=== PATIENT | male | born 1945 | race Caucasian/White ===

== ENCOUNTER → 2016-07-30 | Day surgery (SDC) | payer MEDICARE, OTHER ==
[~2016-07-30] VITALS: Ht 175.3 cm; Wt 156.9 kg
[~2016-07-30] MED LIST: ALEV220T26 PO; LIDOCAINE 2% INJ 100 MG/5 ML SDV (FOR ANES.) As Ordered ONE; LISI40TAB PO; LR 1,000 ML IV SCH; MIDAZOLAM INJ 2 MG/2 ML VIAL (J2250) As Ordered ONE; PROPOFOL 200 MG/20 ML VIAL As Ordered ONE
--- NOTE | 2016-07-30 08:05 | ROOR ---
Patient Name: Niels Calzada Procedure Date: 07/30/2016 7:16 AM Date of : 1945 Age: 70 Room: Main OR Gender: Male Note Status: Finalized Procedure: Colonoscopy to Cecum Indications: High risk colon cancer surveillance: Personal history of colonic polyps Providers: Miki Morales MD Referring MD: Corky Hopkins Requesting Provider: Medicines: Monitored Anesthesia Care Complications: No immediate complications. Procedure: Pre-Anesthesia Assessment: - The heart rate, respiratory rate, oxygen saturations, blood pressure, adequacy of pulmonary ventilation, and response to care were monitored throughout the procedure. The Colonoscope was introduced through the anus and advanced to the cecum, identified by appendiceal orifice and ileocecal valve. The colonoscopy was performed without difficulty. The patient tolerated the procedure well. The quality of the bowel preparation was excellent. Findings: The perianal and digital rectal examinations were normal. Non-bleeding internal hemorrhoids were found during retroflexion. The hemorrhoids were small and Grade I (internal hemorrhoids that do not prolapse). Multiple small and large-mouthed diverticula were found in the recto-sigmoid colon, sigmoid colon and descending colon. There is no endoscopic evidence of any other abnormality in the ascending colon. No ulcer at this procedure. Appears to be healed. The exam was otherwise without abnormality on direct and retroflexion views. Impression: - Non-bleeding internal hemorrhoids. - Diverticulosis in the recto-sigmoid colon, in the sigmoid colon and in the descending colon. - The examination was otherwise normal on direct and retroflexion views. - No specimens collected. - The exam was otherwise normal to the cecum. Recommendation: - Discharge patient to home. - Continue present medications. - High fiber diet. - Repeat colonoscopy in 5 years for surveillance. - Return to referring physician. - The findings and recommendations were discussed with the patient's family. Attending Participation: I personally performed the entire procedure. Miki Morales MD Miki Morales MD 07/30/2016 8:04:32 AM This report has been signed electronically. Number of Addenda: 0 Note Initiated On: 07/30/2016 7:16 AM Estimated Blood Loss: Estimated blood loss: none.
[2016-07-30 08:53] VITALS: BP 97/56
== END | disposition home or self-care (01) ==
LOC: M SDC 05:59 → EDSTATUS 07:30
PROVIDERS: ATTEND Internal Medicine Gastroenterology
DX: Z86.010 Personal history of colon polyps (principal); K64.8 Other hemorrhoids; I10 Essential (primary) hypertension; Z79.899 Other long term (current) drug therapy; Z87.891 Personal history of nicotine dependence
CPT/HCPCS: 45378; J2250

== ENCOUNTER 2020-04-29 12:45 | Inpatient (IN) | payer MEDICARE, OTHER ==
[2020-04-29] VITALS (31 sets, daily range): BP systolic 85–148; BP diastolic 37–94; O2SAT 98
[~2020-04-29] VITALS: Ht 175.3 cm; Wt 139.3 kg
[~2020-04-29 12:45] MED LIST changes: -LIDOCAINE 2% INJ 100 MG/5 ML SDV (FOR ANES.) As Ordered ONE; +LISI40TA PO; -LISI40TAB PO; -LR 1,000 ML IV SCH; -MIDAZOLAM INJ 2 MG/2 ML VIAL (J2250) As Ordered ONE; -PROPOFOL 200 MG/20 ML VIAL As Ordered ONE; +SUCCINYLCHOLINE 100 MG/5 ML SYRINGE (J0330) ONE; +ePHEDrine INJ 50 MG/ML VIAL ONE; +propofoL 200 MG/20 ML VIAL ONE
[2020-04-29] MEDS ORDERED: NS 500 ML IV ONE (13:00)
[2020-04-29] MEDS ORDERED: NOREPINEPHRINE 4 MG/4 ML AMP As Ordered ONE ×2 (13:03→13:09)
[2020-04-29] MEDS ORDERED: DEXTROSE 50% 50 ML SYRINGE As Ordered ONE (13:06)
[2020-04-29 13:26] LABS: HEMATOCRIT 52.8 % (42.0-52.0); HEMOGLOBIN 15.5 g/dl (13.5-17.5); MEAN CORPUSCULAR HEMOGLOBIN 30.6 pg (27.0-33.0); MEAN CORPUSCULAR HGB CONC 29.4 g/dl (32.0-36.5); MEAN CORPUSCULAR VOLUME 104.3 fl (80.0-96.0); PLATELET COUNT, AUTOMATED 523 10^3/uL (150-450); RED BLOOD COUNT 5.06 10^6/uL (4.30-6.10)
[2020-04-29] MEDS ORDERED: NOREPINEPHRINE BITARTRATE 8 MG in D5W 492 ML IV SCH ×2 (13:30→13:37)
[2020-04-29] MEDS ORDERED: LIDOCAINE 2% 5ML JELLY UROJET TOP ONE (13:30)
[2020-04-29] MEDS ORDERED: AMIO200T3 PO (13:36)
[2020-04-29] MEDS ORDERED: PANT40TA29 PO (13:36)
[2020-04-29] MEDS ORDERED: DILT180C70 PO (13:36)
[2020-04-29] MEDS ORDERED: ELIQ5TAB PO (13:36)
[2020-04-29] MEDS ORDERED: BACL10TA2 PO (13:36)
[2020-04-29] MEDS ORDERED: METO1TAB87 PO (13:36)
--- NOTE | 2020-04-29 13:43 | REP ---
INDICATION: CHEST PAIN. COMPARISON: Comparison chest x-ray April 04, 2020.. TECHNIQUE: Supine AP portable view. FINDINGS: Endotracheal tube has been passed in good position just below the level of proximal clavicles. There is gaseous distention of the stomach. Monitoring electrodes are seen. Heart is not felt to be enlarged. Pulmonary vasculature is not increased. There is no evidence of pneumothorax or obvious high but hydrothorax. No infiltrate. IMPRESSION: Endotracheal tube in good position. Gaseous distention of the stomach. Otherwise negative. <Electronically signed by Torey Kline > 04/29/20 [id number]
[2020-04-29] MEDS ORDERED: NS IV ONE (13:45)
[2020-04-29] MEDS ORDERED: EPINEPHrine 1MG/10ML SYRINGE 1.5IN As Ordered ONE (13:45)
[2020-04-29] MEDS ORDERED: PIPERACILLIN/TAZOBACTAM SOD 4.5 GM in D5W MINI-BAG PLUS 50 ML IV ONE (13:45)
--- NOTE | 2020-04-29 14:10 | REP ---
INDICATION: fall unresponsive. COMPARISON: None. TECHNIQUE: Helical scanning is acquired. 5 mm axial images were reformatted. Coronal MPR images were generated. FINDINGS: Bone window settings demonstrate an intact bony calvarium. There is no evidence of skull fracture or incidental bony calvarial lesion. No intraorbital abnormality is seen. On soft tissue window setting images; the lateral, third, and fourth ventricles are normal in size and position. Meraz-white differentiation pattern is normal above and below the tentorium. There are is no evidence of intracranial hemorrhage. No mass, edema, infarction, or midline shift is seen. No extra-axial fluid collection is appreciated. There is minimal mucosal thickening in the maxillary sinuses bilaterally. Mild vascular calcification is noted. IMPRESSION: Negative noncontrast head CT. <Electronically signed by Torey Kline > 04/29/20 2101
--- NOTE | 2020-04-29 14:13 | REP ---
INDICATION: fall unresponsive. COMPARISON: None. TECHNIQUE: Helical scanning is acquired and overlapping 2 mm high resolution axial images were generated and reviewed at bone and soft tissue window settings. Coronal and sagittal multiplanar re-formations images are generated. FINDINGS: There is no evidence of cervical spine element fracture. No skull base fracture is seen. Cervical vertebral body heights are preserved. Alignment is normal. Facet joints are normally aligned bilaterally at each cervical level on multiplanar re-formations images. There is no evidence of intraspinal or paraspinal hematoma. No extra vertebral abnormality is seen. There is degenerative spondylosis is most pronounced at C5-6 and C6-7. At C6-7 there is central canal stenosis due to disc bulging and posterior osteophytic ridging. There is uncovertebral spurring most pronounced on the left with neural foraminal narrowing. At C5-6 there is moderate bilateral neural foraminal narrowing and there is diffuse disc bulging and osteophytic ridging producing moderate central canal stenosis. Osteoarthritic facet disease is noted in the mid cervical spine bilaterally. IMPRESSION: Degenerative spondylosis with spinal stenosis and neural foraminal narrowing at C5-6 and C6-7 moderate in degree. Otherwise negative. No traumatic abnormality noted.. <Electronically signed by Torey Kline > 04/29/20 [id number]
[2020-04-29] MEDS ORDERED: PANTOPRAZOLE 40MG VIAL (C9113 PER 1) IV ONE (14:15)
--- NOTE | 2020-04-29 14:18 | REP ---
INDICATION: fall unresponsive. COMPARISON: None. TECHNIQUE: Helical scanning is acquired and 3 mm axial images are generated. Coronal and sagittal MPR images are generated. FINDINGS: An endotracheal and nasogastric tube are seen in place. Endotracheal tube terminates just above the level of the transverse aorta. The NG tube is seen terminating in the body of the stomach. Some vascular calcification is noted. There is no evidence of mediastinal hematoma or mass. There is consolidation and some volume loss in the right lower lobe of the lung. Mild discoid atelectasis is seen in the left lower lobe posteriorly and in the right middle lobe. No other infiltrate is seen. There is minimal linear fibrosis in the right upper lobe anteromedially. There are numerous bilateral anterior rib fractures. There are few bubbles of subcutaneous air in the right anterior chest wall between the costal cartilages. No mediastinal hematoma is seen. No other fracture is observed. Thoracic vertebral body heights are preserved. Psoas there are numb appears intact. IMPRESSION: There are numerous bilateral anterior rib fractures and costal cartilage fractures. No evidence of pneumothorax or hemothorax. There is consolidation and atelectasis in the right and to a lesser extent left lower lobe. No mediastinal hematoma is seen. Endotracheal and NG tubes in good position. <Electronically signed by Torey Kline > 04/29/20 [id number]
[2020-04-29] MEDS ORDERED: MIDAZOLAM INJ 2MG/2ML VIAL (J2250 PER 1MG) As Ordered ONE (14:21)
[2020-04-29 14:26] LABS: EOSINOPHILS 1 % (0-3); LYMPHOCYTES 33 % (16-44); METAMYELOCYTES 4 % (0-0); MONOCYTES 8 % (0-5); MYELOCYTES 2 % (0-0); NEUTROPHILS 40 % (28-66); PROMYELOCYTES 1 % (0-0)
[2020-04-29 14:27] LABS: HYPOCHROMASIA 1+
[2020-04-29 14:28] LABS: PLATELET ESTIMATE INCREASED (NORMAL)
[2020-04-29 14:30] LABS: ABG BASE EXCESS -20.6 (-2.0-2.0); ABG HCO3 10.4 MEQ/L (22.0-26.0); ABG O2 SATURATION 95.3 % (95.0-99.0); ABG PARTIAL PRESSURE CO2 43.1 mmHg (35.0-45.0); ABG PARTIAL PRESSURE O2 108.2 mmHg (75.0-100.0); ABG STANDARD HCO3 9.8 MEQ/L (22.0-26.0); ABG TOTAL CO2 11.7 MEQ/L (23.0-31.0)
[2020-04-29] MEDS: EPINEPHrine HCL INJ 1 MG in D5W 240 ML IV SCH ×5 (14:30→23:34)
[2020-04-29] MEDS ORDERED: MIDAZOLAM HCL 50 MG in D5W 40 ML IV SCH (14:30)
[2020-04-29 14:32] LABS: ABG pH (ARTERIAL) 6.999 UNITS (7.350-7.450)
[2020-04-29 14:36] LABS: INR 2.78
[2020-04-29 14:37] LABS: PARTIAL THROMBOPLASTIN TIME 37.8 SECONDS (24.2-38.5)
[2020-04-29] MEDS ORDERED: SODIUM BICARBONATE 150 MEQ in STERILE WATER LITER BAG 1,000 ML IV SCH (14:45)
[2020-04-29 15:01] LABS: D-DIMER QUANT > 4000 ng/ml (<500)
[2020-04-29 15:02] LABS: MAGNESIUM LEVEL 3.5 MG/DL (1.8-2.4); PHOSPHORUS LEVEL 9.1 MG/DL (2.5-4.9)
[2020-04-29] MEDS ORDERED: EPINEPHrine INJ 1 MG/ML 1ML AMP IV STA (15:10)
[2020-04-29] MEDS ORDERED: propofoL 1,000 MG in IV 1 EA IV SCH (15:10)
[2020-04-29] MEDS ORDERED: propofoL 200 MG/20 ML VIAL IV ONE (15:15)
[2020-04-29] MEDS ORDERED: SUCCINYLCHOLINE INJ 200 MG/10 ML VIAL (J0330) IV ONE (15:15)
--- NOTE | 2020-04-29 15:19 | REP ---
INDICATION: fall unresponsive COMPARISON: None. TECHNIQUE: Helical scanning is acquired in 4 mm axial images were reformatted. Coronal and sagittal MPR images were generated and reviewed. FINDINGS: There is a low-density lesion in the dome of the liver 3.4 cm in diameter consistent with a cyst. Liver parenchyma is otherwise normal in appearance. The spleen is normal in size homogeneous in texture. No abnormality is noted in the gallbladder or pancreas. The kidneys are morphologically intact. No retroperitoneal mass hematoma or abnormal fluid collection is seen. There is a tiny amount of ascitic fluid in the pelvis. Normal appendix is seen. There is gaseous and some fluid distention throughout the colon predominantly transverse and cecal segment. There is diverticulosis of the left colon without CT evidence of diverticulitis. There are scattered retroperitoneal and iliac lymph nodes no definite adenopathy. Bone window settings demonstrate fairly advanced degenerative spondylosis changes in the lumbar spine. No fracture or collapse is seen. Multiple an anterior rib fractures are noted bilaterally as described on the chest CT report. There is no evidence of free intraperitoneal air. IMPRESSION: Gaseous distention of the stomach, despite NG tube placement, and right and transverse segments of the colon. No obstructive lesion is seen. No intra-abdominal mass lesion. 3.4 cm hepatic cyst. Multiple anterior rib fractures bilaterally. Left colonic diverticulosis. Minimal fluid in the pelvis reflections. <Electronically signed by Torey Kline > 04/29/20 [id number]
[2020-04-29] MEDS ORDERED: DEXTROSE 50% 50 ML SYRINGE IV STA (15:26)
[2020-04-29] MEDS ORDERED: levETIRAcetam INJection 1,000 MG in D5W 100 ML IV ONE (15:30)
[2020-04-29] MEDS ORDERED: BUTA1CAP PO (15:34)
[2020-04-29 15:37] LABS: ALBUMIN 2.2 GM/DL (3.2-5.2); ALT/SGPT 775 U/L (12-78); AMYLASE 87 U/L (25-115); BILIRUBIN,DIRECT 0.7 MG/DL (0.0-0.2); BILIRUBIN,TOTAL 1.4 MG/DL (0.2-1.0); CK-MB VALUE MASS 3.9 NG/ML (<3.6); CPK CREATINE PHOSPHOKINASE 394 U/L (39-308); LIPASE 121 U/L (73-393); MB/CK RELATIVE INDEX 0.99 (< OR =4); NT-PRO BNP 799 PG/ML (<125); TOTAL PROTEIN 6.5 GM/DL (6.4-8.2); TROPONIN I < 0.02 NG/ML (< 0.10)
[2020-04-29] MEDS ORDERED: NS 1,000 ML IV SCH (16:00)
[2020-04-29] MEDS ORDERED: REFRIGERATOR IV KEYS XX PRN (16:00)
[2020-04-29] MEDS ORDERED: EPINEPHrine HCL INJ 1 MG in D5W 240 ML IV SCH (16:00)
[2020-04-29] MEDS ORDERED: ACETAMINOPHEN 650 MG SUPP PR ONE (16:00)
[2020-04-29] MEDS ORDERED: ACETAMINOPHEN 650 MG SUPP PR PRN (16:00)
[2020-04-29] MEDS: IPRATROPIUM 0.5MG/ALBUTEROL 2.5MG INH SOL UD 3ML (DUONEB) NEB SCH ×2 (16:00→19:56)
[2020-04-29 16:20] LABS: HEPATITIS B SURFACE ANTIGEN NEGATIVE (NEGATIVE); HEPATITIS C VIRUS ABY INDEX 0.2 INDEX (<0.8); HIV SCREEN CENTAUR SOURCE NEGATIVE (NEGATIVE)
[2020-04-29] MEDS ORDERED: XALA0.007 OU (16:40)
[2020-04-29 17:03] LABS: INR 4.19; PARTIAL THROMBOPLASTIN TIME 50.5 SECONDS (24.2-38.5); PROTHROMBIN TIME 41.4 SECONDS (12.5-14.3)
[2020-04-29] MEDS: VASOPRESSIN INJ 20 UNITS in NS 500 ML IV SCH (17:12)
[2020-04-29 17:17] LABS: ABG BASE EXCESS -20.5 (-2.0-2.0); ABG HCO3 8.5 MEQ/L (22.0-26.0); ABG O2 SATURATION 97.9 % (95.0-99.0); ABG PARTIAL PRESSURE CO2 30.5 mmHg (35.0-45.0); ABG PARTIAL PRESSURE O2 134.5 mmHg (75.0-100.0); ABG STANDARD HCO3 9.5 MEQ/L (22.0-26.0); ABG TOTAL CO2 9.4 MEQ/L (23.0-31.0); HEMATOCRIT 36.3 % (42.0-52.0); MEAN CORPUSCULAR HEMOGLOBIN 31.5 pg (27.0-33.0); MEAN CORPUSCULAR HGB CONC 30.9 g/dl (32.0-36.5); MEAN CORPUSCULAR VOLUME 102.3 fl (80.0-96.0); RED BLOOD COUNT 3.55 10^6/uL (4.30-6.10)
[2020-04-29 17:21] LABS: ABG pH (ARTERIAL) 7.063 UNITS (7.350-7.450)
[2020-04-29] MEDS: HEPARIN SOD (PORCINE) 5000UNITS/ML 1ML VIAL/SYRINGE SC SCH ×2 (17:28→23:51)
[2020-04-29 17:29] LABS: HEMOGLOBIN 11.2 g/dl (13.5-17.5); PLATELET COUNT, AUTOMATED 389 10^3/uL (150-450)
[2020-04-29 17:31] LABS: PROTHROMBIN TIME 51.2 SECONDS (12.5-14.3); WHITE BLOOD COUNT 40.6 10^3/uL (4.0-10.0)
[2020-04-29 17:32] LABS: PARTIAL THROMBOPLASTIN TIME 54.7 SECONDS (24.2-38.5)
[2020-04-29 17:33] LABS: INR 5.49
[2020-04-29 17:36] LABS: D-DIMER QUANT > 4000 ng/ml (<500)
[2020-04-29] MEDS ORDERED: LACRILUBE (AKWA TEARS) OPHTH OINT 3.5 GM OU PRN (18:00)
[2020-04-29] MEDS: HumaLOG INSULIN (NovoLOG) PER UNIT SC SCH ×3 (18:00→23:56)
[2020-04-29] MEDS: cefTRIAXone SOD 1 GM in D5W MINI-BAG PLUS 50 ML IV SCH (18:22)
[2020-04-29 18:30] LABS: ALBUMIN 1.8 GM/DL (3.2-5.2); BILIRUBIN,TOTAL 1.6 MG/DL (0.2-1.0); CALCIUM LEVEL 8.6 MG/DL (8.8-10.2); CREATININE FOR GFR 2.53 MG/DL (0.70-1.30); GLOMERULAR FILTRATION RATE 26.8 (>42); MAGNESIUM LEVEL 2.6 MG/DL (1.8-2.4); MB/CK RELATIVE INDEX 1.83 (< OR =4); PHOSPHORUS LEVEL 8.7 MG/DL (2.5-4.9); POTASSIUM SERUM 4.4 MEQ/L (3.5-5.1); TOTAL PROTEIN 4.8 GM/DL (6.4-8.2); TROPONIN I 0.14 NG/ML (< 0.10)
[2020-04-29] MEDS ORDERED: SODIUM BICARBONATE 8.4% INJ 50 ML SYRINGE IV STA ×2 (18:38→22:01)
[2020-04-29] MEDS ORDERED: SODIUM BICARBONATE 8.4% INJ 50 ML SYRINGE As Ordered ONE (18:42)
[2020-04-29] MEDS ORDERED: GLUCAGON INJ 1MG VIAL SC PRN (19:15)
[2020-04-29] MEDS ORDERED: DEXTROSE 50% 50 ML SYRINGE IV PRN (19:15)
[2020-04-29] MEDS ORDERED: GLUCOSE 4GM CHEW TABLET PO PRN (19:15)
[2020-04-29] MEDS: MIDAZOLAM INJ 2MG/2ML VIAL (J2250 PER 1MG) IV PRN (20:33)
[2020-04-29 21:13] LABS: ABG BASE EXCESS -18.1 (-2.0-2.0); ABG O2 SATURATION 99.1 % (95.0-99.0); ABG PARTIAL PRESSURE CO2 31.4 mmHg (35.0-45.0); ABG PARTIAL PRESSURE O2 204.8 mmHg (75.0-100.0); ABG STANDARD HCO3 11.1 MEQ/L (22.0-26.0)
[2020-04-29 21:14] LABS: ABG pH (ARTERIAL) 7.121 UNITS (7.350-7.450)
[2020-04-29 21:23] LABS: HEMATOCRIT 37.3 % (42.0-52.0); HEMOGLOBIN 11.3 g/dl (13.5-17.5); MEAN CORPUSCULAR HEMOGLOBIN 30.7 pg (27.0-33.0); MEAN CORPUSCULAR HGB CONC 30.3 g/dl (32.0-36.5); MEAN CORPUSCULAR VOLUME 101.4 fl (80.0-96.0); PLATELET COUNT, AUTOMATED 398 10^3/uL (150-450); RED BLOOD COUNT 3.68 10^6/uL (4.30-6.10)
[2020-04-29 21:25] LABS: WHITE BLOOD COUNT 40.8 10^3/uL (4.0-10.0)
[2020-04-29 21:33] LABS: PROTHROMBIN TIME 58.4 SECONDS (12.5-14.3)
[2020-04-29 21:34] LABS: PARTIAL THROMBOPLASTIN TIME 56.1 SECONDS (24.2-38.5)
[2020-04-29] MEDS: CHLORHEXIDINE GLUCONATE 0.12 % 15ML UDC (PERIDEX ORAL RINSE) MT SCH (21:36)
[2020-04-29 21:59] LABS: INR 6.49
[2020-04-29 22:00] LABS: ALBUMIN 1.7 GM/DL (3.2-5.2); BILIRUBIN,TOTAL 1.7 MG/DL (0.2-1.0); CALCIUM LEVEL 8.5 MG/DL (8.8-10.2); CREATININE FOR GFR 2.92 MG/DL (0.70-1.30); GLOMERULAR FILTRATION RATE 22.7 (>42); MAGNESIUM LEVEL 2.5 MG/DL (1.8-2.4); PHOSPHORUS LEVEL 8.5 MG/DL (2.5-4.9); POTASSIUM SERUM 4.1 MEQ/L (3.5-5.1); TOTAL PROTEIN 5.3 GM/DL (6.4-8.2)
--- NOTE | 2020-04-29 22:06 | ECGEPIP ---
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
[2020-04-29] MEDS: NOREPINEPHRINE BITARTRATE 8 MG in D5W 492 ML IV SCH ×2 (22:42→23:45)
[2020-04-29] MEDS ORDERED: VANCOMYCIN HCL 1,000 MG, VIAL MATE ADAPTER 1 EACH in D5W 250 ML IV ONE (23:00)
[2020-04-30] VITALS (55 sets, daily range): BP systolic 52–162; BP diastolic 26–68; O2SAT 91–93
[2020-04-30] MEDS ORDERED: VANCOMYCIN HCL 1,000 MG, VIAL MATE ADAPTER 1 EACH in D5W 250 ML IV ONE ×3
[2020-04-30] MEDS: HumaLOG INSULIN (NovoLOG) PER UNIT SC SCH ×4 (00:05→17:26)
[2020-04-30] MEDS: IPRATROPIUM 0.5MG/ALBUTEROL 2.5MG INH SOL UD 3ML (DUONEB) NEB SCH ×6 (00:28→19:45)
[2020-04-30] MEDS: MIDAZOLAM INJ 2MG/2ML VIAL (J2250 PER 1MG) IV PRN ×2 (00:50→01:14)
[2020-04-30 01:00] LABS: ALBUMIN 1.7 GM/DL (3.2-5.2); BILIRUBIN,TOTAL 1.8 MG/DL (0.2-1.0); CALCIUM LEVEL 8.5 MG/DL (8.8-10.2); CREATININE FOR GFR 3.16 MG/DL (0.70-1.30); GLOMERULAR FILTRATION RATE 20.7 (>42); MAGNESIUM LEVEL 2.3 MG/DL (1.8-2.4); PHOSPHORUS LEVEL 8.3 MG/DL (2.5-4.9); POTASSIUM SERUM 3.9 MEQ/L (3.5-5.1); TOTAL PROTEIN 5.1 GM/DL (6.4-8.2)
[2020-04-30] MEDS: SODIUM BICARBONATE 150 MEQ in STERILE WATER LITER BAG 1,000 ML IV SCH ×3 (01:14→12:28)
[2020-04-30 01:31] LABS: ABG BASE EXCESS -16.6 (-2.0-2.0); ABG HCO3 10.4 MEQ/L (22.0-26.0); ABG PARTIAL PRESSURE CO2 28.7 mmHg (35.0-45.0); ABG PARTIAL PRESSURE O2 66.7 mmHg (75.0-100.0); ABG STANDARD HCO3 12.1 MEQ/L (22.0-26.0); ABG TOTAL CO2 11.2 MEQ/L (23.0-31.0); ABG pH (ARTERIAL) 7.175 UNITS (7.350-7.450)
[2020-04-30 01:31] LABS: HEMATOCRIT 32.9 % (42.0-52.0); HEMOGLOBIN 10.1 g/dl (13.5-17.5); MEAN CORPUSCULAR HGB CONC 30.7 g/dl (32.0-36.5); MEAN CORPUSCULAR VOLUME 100.9 fl (80.0-96.0); PLATELET COUNT, AUTOMATED 335 10^3/uL (150-450); RED BLOOD COUNT 3.26 10^6/uL (4.30-6.10)
[2020-04-30 01:33] LABS: WHITE BLOOD COUNT 32.2 10^3/uL (4.0-10.0)
[2020-04-30 01:34] LABS: PROTHROMBIN TIME 66.8 SECONDS (12.5-14.3)
[2020-04-30 01:35] LABS: ABG O2 SATURATION 92.5 % (95.0-99.0)
[2020-04-30 01:35] LABS: PARTIAL THROMBOPLASTIN TIME 53.1 SECONDS (24.2-38.5)
[2020-04-30 01:38] LABS: INR 7.69
[2020-04-30] MEDS: EPINEPHrine HCL INJ 1 MG in D5W 240 ML IV SCH ×8 (01:51→17:50)
[2020-04-30] MEDS: VASOPRESSIN INJ 20 UNITS in NS 500 ML IV SCH ×3 (01:59→18:04)
[2020-04-30] MEDS: levETIRAcetam INJection 500 MG in D5W MINI-BAG PLUS 100 ML IV SCH ×2 (02:09→15:12)
[2020-04-30] MEDS: NOREPINEPHRINE BITARTRATE 8 MG in D5W 492 ML IV SCH ×4 (02:30→16:52)
[2020-04-30 05:15] LABS: HEMATOCRIT 34.6 % (42.0-52.0); HEMOGLOBIN 10.4 g/dl (13.5-17.5); MEAN CORPUSCULAR HEMOGLOBIN 30.1 pg (27.0-33.0); MEAN CORPUSCULAR HGB CONC 30.1 g/dl (32.0-36.5); MEAN CORPUSCULAR VOLUME 100.3 fl (80.0-96.0); PLATELET COUNT, AUTOMATED 339 10^3/uL (150-450); RED BLOOD COUNT 3.45 10^6/uL (4.30-6.10); WHITE BLOOD COUNT 29.2 10^3/uL (4.0-10.0)
[2020-04-30 05:19] LABS: ABG BASE EXCESS -16.7 (-2.0-2.0); ABG HCO3 10.4 MEQ/L (22.0-26.0); ABG O2 SATURATION 88.5 % (95.0-99.0); ABG PARTIAL PRESSURE CO2 29.3 mmHg (35.0-45.0); ABG PARTIAL PRESSURE O2 59.8 mmHg (75.0-100.0); ABG STANDARD HCO3 11.7 MEQ/L (22.0-26.0); ABG TOTAL CO2 11.3 MEQ/L (23.0-31.0)
[2020-04-30 05:25] LABS: PROTHROMBIN TIME 80.4 SECONDS (12.5-14.3)
[2020-04-30 05:35] LABS: ATYPICAL LYMPH 4 % (0-5); LYMPHOCYTES 7 % (16-44); METAMYELOCYTES 2 % (0-0); MONOCYTES 4 % (0-5); NEUTROPHILS 77 % (28-66)
[2020-04-30 05:36] LABS: PLATELET CLUMPS SMALL AMT; PLATELET ESTIMATE NORMAL (NORMAL)
[2020-04-30 05:37] LABS: TOXIC VACUOLATION 1+
[2020-04-30 06:33] LABS: INR 9.73
[2020-04-30 06:41] LABS: ALBUMIN 1.9 GM/DL (3.2-5.2); CREATININE FOR GFR 3.24 MG/DL (0.70-1.30); GLOMERULAR FILTRATION RATE 20.1 (>42); MAGNESIUM LEVEL 2.3 MG/DL (1.8-2.4); POTASSIUM SERUM 4.3 MEQ/L (3.5-5.1); TOTAL PROTEIN 5.2 GM/DL (6.4-8.2)
[2020-04-30] MEDS ORDERED: MIDAZOLAM HCL 100 MG in D5W 80 ML IV SCH (06:45)
[2020-04-30] MEDS ORDERED: METAL LOCK LOOP XX ONE (07:51)
--- NOTE | 2020-04-30 08:27 | REP ---
INDICATION: resp failure. COMPARISON: Comparison study April 29, 2020.. TECHNIQUE: Single semi-erect AP view. FINDINGS: Endotracheal tube remains in good position at the level of the proximal clavicles. NG tube enters the left upper quadrant. There is hazy opacity in the right base and blunting of the right lateral pleural angle indicating a small right pleural effusion. There is discoid atelectasis in the left base. No new infiltrate. IMPRESSION: Suspect developing pleural effusion on the right. Discoid atelectasis left base. <Electronically signed by Torey Kline > 04/30/20 0817
[2020-04-30] MEDS ORDERED: PANTOPRAZOLE 40MG VIAL (C9113 PER 1) IV SCH (09:00)
[2020-04-30 09:02] LABS: ABG BASE EXCESS -21.2 (-2.0-2.0); ABG HCO3 7.4 MEQ/L (22.0-26.0); ABG O2 SATURATION 93.5 % (95.0-99.0); ABG PARTIAL PRESSURE CO2 23.9 mmHg (35.0-45.0); ABG PARTIAL PRESSURE O2 72.5 mmHg (75.0-100.0); ABG STANDARD HCO3 8.8 MEQ/L (22.0-26.0); ABG TOTAL CO2 8.2 MEQ/L (23.0-31.0); ABG pH (ARTERIAL) 7.097 UNITS (7.350-7.450)
[2020-04-30 09:07] LABS: HEMATOCRIT 33.9 % (42.0-52.0); HEMOGLOBIN 10.5 g/dl (13.5-17.5); MEAN CORPUSCULAR HEMOGLOBIN 31.5 pg (27.0-33.0); MEAN CORPUSCULAR VOLUME 101.8 fl (80.0-96.0); PLATELET COUNT, AUTOMATED 307 10^3/uL (150-450); RED BLOOD COUNT 3.33 10^6/uL (4.30-6.10); WHITE BLOOD COUNT 29.6 10^3/uL (4.0-10.0)
[2020-04-30] MEDS ORDERED: D5W/0.9% SODIUM CHLORIDE 1,000 ML IV SCH (09:15)
[2020-04-30] MEDS: CHLORHEXIDINE GLUCONATE 0.12 % 15ML UDC (PERIDEX ORAL RINSE) MT SCH (09:19)
[2020-04-30 09:23] LABS: PARTIAL THROMBOPLASTIN TIME 49.8 SECONDS (24.2-38.5)
[2020-04-30 09:24] LABS: PROTHROMBIN TIME 93.9 SECONDS (12.5-14.3)
--- NOTE | 2020-04-30 09:34 | ECGEPIP ---
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 Low voltages; body habitus versus pulmonary disease Right axis deviation and right bundle branch block resolved from 04/29/20 Electronically Signed on 04-30-2020 9:34:01 EST by Cricket Akhtar
[2020-04-30 09:48] LABS: INR 11.85
[2020-04-30] MEDS ORDERED: PHYTONADIONE 10MG/ML INJECTION (J3430) SC ONE (10:15)
[2020-04-30 10:17] LABS: ALBUMIN 1.8 GM/DL (3.2-5.2); BILIRUBIN,TOTAL 2.1 MG/DL (0.2-1.0); CALCIUM LEVEL 7.8 MG/DL (8.8-10.2); CREATININE FOR GFR 3.48 MG/DL (0.70-1.30); GLOMERULAR FILTRATION RATE 18.5 (>42); MAGNESIUM LEVEL 2.4 MG/DL (1.8-2.4); PHOSPHORUS LEVEL 9.9 MG/DL (2.5-4.9); POTASSIUM SERUM 4.7 MEQ/L (3.5-5.1); TOTAL PROTEIN 4.9 GM/DL (6.4-8.2)
[2020-04-30] MEDS ORDERED: SODIUM CHLORIDE 0.9% INJ 10 ML SYR IV PRN (11:30)
[2020-04-30 13:02] LABS: HEMATOCRIT 28.9 % (42.0-52.0); HEMOGLOBIN 8.6 g/dl (13.5-17.5); MEAN CORPUSCULAR HEMOGLOBIN 31.2 pg (27.0-33.0); MEAN CORPUSCULAR HGB CONC 29.8 g/dl (32.0-36.5); MEAN CORPUSCULAR VOLUME 104.7 fl (80.0-96.0); PLATELET COUNT, AUTOMATED 264 10^3/uL (150-450); RED BLOOD COUNT 2.76 10^6/uL (4.30-6.10); WHITE BLOOD COUNT 24.7 10^3/uL (4.0-10.0)
[2020-04-30 13:09] LABS: ABG BASE EXCESS -22.6 (-2.0-2.0); ABG HCO3 6.9 MEQ/L (22.0-26.0); ABG O2 SATURATION 94.5 % (95.0-99.0); ABG PARTIAL PRESSURE CO2 25.6 mmHg (35.0-45.0); ABG PARTIAL PRESSURE O2 76.7 mmHg (75.0-100.0); ABG STANDARD HCO3 7.6 MEQ/L (22.0-26.0); ABG TOTAL CO2 7.8 MEQ/L (23.0-31.0)
[2020-04-30 13:10] LABS: ABG pH (ARTERIAL) 7.036 UNITS (7.350-7.450)
[2020-04-30 13:14] LABS: PARTIAL THROMBOPLASTIN TIME 57.2 SECONDS (24.2-38.5)
[2020-04-30 13:22] LABS: INR 8.31
[2020-04-30 13:44] LABS: MAGNESIUM LEVEL 2.4 MG/DL (1.8-2.4); PHOSPHORUS LEVEL 9.7 MG/DL (2.5-4.9)
[2020-04-30 14:47] LABS: ALBUMIN 1.9 GM/DL (3.2-5.2); CALCIUM LEVEL 7.3 MG/DL (8.8-10.2); CREATININE FOR GFR 3.25 MG/DL (0.70-1.30); GLOMERULAR FILTRATION RATE 20.1 (>42); POTASSIUM SERUM 5.1 MEQ/L (3.5-5.1); TOTAL PROTEIN 4.7 GM/DL (6.4-8.2)
[2020-04-30 17:07] LABS: IONIZED CALCIUM 3.6 MG/DL (4.5-5.3)
[2020-04-30 17:21] LABS: HEMATOCRIT 28.1 % (42.0-52.0); HEMOGLOBIN 8.2 g/dl (13.5-17.5); MEAN CORPUSCULAR HEMOGLOBIN 31.1 pg (27.0-33.0); MEAN CORPUSCULAR HGB CONC 29.2 g/dl (32.0-36.5); MEAN CORPUSCULAR VOLUME 106.4 fl (80.0-96.0); PLATELET COUNT, AUTOMATED 249 10^3/uL (150-450); RED BLOOD COUNT 2.64 10^6/uL (4.30-6.10); WHITE BLOOD COUNT 20.8 10^3/uL (4.0-10.0)
[2020-04-30] MEDS: cefTRIAXone SOD 1 GM in D5W MINI-BAG PLUS 50 ML IV SCH (17:29)
[2020-04-30 17:41] LABS: PARTIAL THROMBOPLASTIN TIME 40.8 SECONDS (24.2-38.5)
[2020-04-30 17:43] LABS: INR 6.01
[2020-04-30] MEDS ORDERED: NS 500 ML IV ONE (17:45)
[2020-04-30 18:07] LABS: ALBUMIN 2.1 GM/DL (3.2-5.2); BILIRUBIN,TOTAL 2.1 MG/DL (0.2-1.0); CALCIUM LEVEL 7.1 MG/DL (8.8-10.2); CREATININE FOR GFR 2.59 MG/DL (0.70-1.30); GLOMERULAR FILTRATION RATE 26.1 (>42); MAGNESIUM LEVEL 2.3 MG/DL (1.8-2.4); PHOSPHORUS LEVEL 8.7 MG/DL (2.5-4.9); POTASSIUM SERUM 5.2 MEQ/L (3.5-5.1); TOTAL PROTEIN 5.1 GM/DL (6.4-8.2)
[2020-04-30] MEDS ORDERED: CALCIUM GLUCONATE 1,000 MG in NS 100 ML IV SCH ×8 (18:45→20:00)
[2020-04-30 18:53] LABS: ABG BASE EXCESS -24.2 (-2.0-2.0); ABG STANDARD HCO3 6.5 MEQ/L (22.0-26.0)
[2020-04-30 18:55] LABS: ABG HCO3 6.6 MEQ/L (22.0-26.0); ABG O2 SATURATION 96.3 % (95.0-99.0); ABG PARTIAL PRESSURE CO2 32.3 mmHg (35.0-45.0); ABG PARTIAL PRESSURE O2 99.1 mmHg (75.0-100.0); ABG TOTAL CO2 7.6 MEQ/L (23.0-31.0); ABG pH (ARTERIAL) 6.929 UNITS (7.350-7.450)
[2020-04-30] MEDS ORDERED: CALCIUM GLUCONATE 1,000 MG, VIAL MATE ADAPTER 1 EACH in NS 100 ML IV SCH (19:00)
[2020-05-01] MEDS ORDERED: VANCOMYCIN HCL 1,000 MG, VIAL MATE ADAPTER 1 EACH in D5W 250 ML IV SCH ×3
--- NOTE | 2020-05-01 10:00 | CCN ---
DATE: 04/30/2020 SUBJECTIVE: I again attending Niels Calzada here in the intensive care. The patient has been examined and chart reviewed. He remains on hypothermia protocol. He has been able to be weaned off epinephrine, but remains on Levophed and vasopressin. Current temperature 95.4, blood pressure 90s to the 150s. Heart rate run in the 80s to the low 100s. He does overbreathe the ventilator. Input and output since admission, 9174 cc in with only 210 cc out. Most recent laboratory showed arterial blood gas done on [facility] mood, rate of 16, tidal volume 500, PEEP of 8, FiO2 of 70%, has pH of 7.170, pCO2 of 29.3, pO2 of 59.8. Sodium 131, potassium of 4.3, chloride 94, bicarbonate of 12, BUN 43, creatinine 3.24. Lactic acid has been varying between 16 and 10 throughout the night, most recent 17.4 however. AST 12,832, ALT 5,644, alkaline phosphatase 150, LDH 19,061. CK 5,633. Albumin of 1.9. INR despite several units of FFP continues to climb and is 9.73 this morning. White blood cell count 29.2 down from a high of 40. Hemoglobin 10.4, platelet count of 339,000, 77% segments, 6% bands. Chest x-ray shows probably right-sided pleural effusion versus early infiltrate, but no other acute findings. PHYSICAL EXAMINATION: He is now on a versed drip and there less of the myoclonic activity noted yesterday. Pupils do react. Membranes are moist. Trachea is midline. Chest shows diminished but symmetric expansion. There are dependent crackles and decreased breath sounds, intensity a little bit more at the right base compared to the left. Cardiac examination: Distant, but generally regular. Peripheral pulses markedly diminished. There is edema. Abdomen is obese and quiet. No convincing organomegaly or masses. Extremities show no cyanosis or clubbing. Neurologically, he is essentially unresponsive, only on versed and with any significant stimulation has myoclonic activity diffusely. LABORATORY DATA: Other laboratory show 1 preliminary set of blood cultures drawn in the emergency room (ER) yesterday at 1307 which shows gram positive cocci in clusters. He remains on Rocephin and vancomycin. Pressors currently are Levophed and vasopressin. He remains on Keppra for his myoclonus. He also remains on a bicarbonate drip continuously. MOST PRESSING PROBLEM REQUIRING MY IMMEDIATE PRESENCE AT THE BEDSIDE: 1. Severe metabolic acidosis, multiple factorial. 2. Renal failure. 3. Hepatic failure. 4. Status post cardiac arrest. 5. Anoxic encephalopathy. 6. Question of underlying sepsis. 7. Chronic pain syndrome. 8. Spinal stenosis with marked decrease mobility prior to hospitalization. 9. Coagulopathy secondary to the above. ASSESSMENT AND PLAN: At this point, he remains quite critically ill. He has had maximal support. He has received significant and adequate volume resuscitation, but remains pressor dependent. We have made absolutely no progress in his metabolic acidosis. I spoke with Dr. Ely from nephrology this morning and we can consider CRRT. I am trying to get a hold of his to discuss this with her and consent will need to be obtained from her by Dr. Ely. In view of the above presentation, will currently continue the Rocephin and vancomycin that was suggested for his renal failure. Will continue fresh frozen plasma (FFP), although we have made no headway. This is conceivable that this is a disseminated intravascular coagulation (DIC) process, although his platelet function appears reasonable at this point. We will proceed as outlined above. No ventilator changes will be made in view of the above. Once he is off of hypothermia protocol, we will re-scan his brain. At this point, his prognosis remains extremely guarded at best and there is a very likelihood that he may not survive this event. He remains a DO NOT RESUSCITATE (DNR) per his wifes wishes and I feel that is quite appropriate. Will proceed as outlined above. I will attempt to speak with his . I left the bedside at 0918 hours. 48 minutes of critical care time recorded at the bedside, not including procedures MTDD
--- NOTE | 2020-05-01 10:14 | IPN ---
DATE: 04/30/2020 I had a long formal conversation with Dr. Ely from Nephrology as well as now with the patient's at 19:10 hours on this date, 04/30/20. Despite maximal therapy with maximal doses of three vasopressors, as well as now continuous renal replacement therapy, he continues to worsen. His lactic acid continues to increase and his acidosis continues to worsen. The concern at this point is he has essentially gut, likely involving his liver as well. I have spoken with his in this regard. The decision is made for no further maximal support. She is not ready to take the endotracheal tube out yet, and I respect that decision. However we will stop CRRT as well as his vasopressors. Essentially he is comfort care except for the endotracheal tube. She wishes to assure that he is as comfortable as he can be, and we will do our best to ensure that. We will continue as per the above. MTDD
--- NOTE | 2020-05-01 10:27 | CR ---
DATE: 04/30/2020 REQUESTING PHYSICIAN: Herrera Fuller M.D. REASON FOR CONSULTATION: Oliguric acute renal failure and severe metabolic acidosis. HISTORY OF PRESENT ILLNESS: The patient is a 74-year-old gentleman with history of morbid obesity, spinal stenosis, atrial fibrillation, gout and chronic degenerative arthritis. Apparently he was admitted to [facility] a couple of weeks ago and anticoagulation was started. Yesterday he was found in cardiac arrest when EMS arrived to his home. Apparently he fell and EMS was going to get him up, however then he went into cardiac arrest and was resuscitated. He is now admitted to the Intensive Care Unit and remains unresponsive. The patient has no urine output and has severe metabolic acidosis. He was on three pressors yesterday but today he is only on Levophed and Vasopressin. The patient has been receiving IV sodium bicarbonate drip and yet his pH is only 7.0. A Nephrology consultation was requested this morning and the patient is seen in the Intensive Care Unit. PAST MEDICAL HISTORY: The patient's past medical history is significant for: * Morbid obesity. * Spinal stenosis. * Atrial fibrillation. * Gout. * Chronic degenerative arthritis. PAST SURGICAL HISTORY: The patient's past surgical history is significant for tonsillectomy and adenoidectomy. MEDICATIONS: His home medications include: * Amiodarone 200 mg twice daily. * Eliquis 5 mg twice daily. * Baclofen 10 mg three times daily. * Metoprolol 25 mg twice daily. * Pantoprazole 40 mg daily. * He also uses eye drops, Xalatan 0.005% at bedtime. ALLERGIES: The patient has no known drug allergies. PERSONAL AND SOCIAL HISTORY: The patient is , lives with his . FAMILY HISTORY: The patient's family history is negative for end-stage renal disease. REVIEW OF SYSTEMS: At present the patient is unresponsive and unable to provide any information. Apparently he was recently admitted to [facility] with atrial fibrillation a couple of weeks ago and had a cardiac arrest yesterday. At present he is on the ventilator and unresponsive. No other pertinent information is available at present and the patient is not able to provide any information. PHYSICAL EXAMINATION: VITAL SIGNS: Temperature 95 degrees Fahrenheit, heart rate 88 per minute and respiratory rate is 18 per minute on the ventilator. Blood pressure 125/58 mm of mercury and oxygen saturation is 95% on the ventilator. HEENT: His eyes are open and rolling but no purposeful interaction. Head is atraumatic. Pupils are equal and sluggishly reactive to light. Sclerae anicteric. He has an endotracheal tube and orogastric tube in place. NECK: Veins are difficult to be assessed. HEART: Sounds are regular. LUNGS: Good bilateral air entry. ABDOMEN: Obese and soft. Bowel sounds are normal. EXTREMITIES: Without any cyanosis or clubbing at present. I do not see any significant peripheral edema. NEUROLOGICAL: He is unresponsive. LABORATORY DATA: His initial blood gas showed a pH of 6.99. Most recent blood gas showed a pH of 7.09. Pco2 is 24, pO2 72.5 and bicarbonate 8. His most recent chemistries this morning showed sodium 131, potassium 4.7, CO2 10, BUN 43 and creatinine 3.48. His lactic level is 18.4. Glucose was 66 and calcium 7.8. Phosphorous 9.9 and magnesium 2.4. AST is 17,988, ALT 6,522, total protein 4.9 and albumin 1.8. His INR is 11.85 today. IMAGING DATA: Chest x-ray done this morning is reported as pleural effusion on the right and some atelectasis at the left base. PROBLEM LIST: * Anuric acute renal failure - The patient had a cardiac arrest and his acute renal failure is due to hypoperfusion. He is completely anuric at present. I have discussed with Dr. Fuller and also with the patient's . They are both in agreement for a trial of CRRT given his severe hypotension. We will start the CRRT and see how he tolerates this. * Metabolic acidosis - The patient has been on IV sodium bicarbonate drip and will continue the same until 3:00 PM. We are starting CRRT at about noon today and then will stop his sodium bicarbonate drip in about 3 hours. His blood gas and chemistries will be repeated about 6:00 PM again. I anticipate improvement in the metabolic acidosis with CRRT. * Hyponatremia this is related to acute renal failure and IV fluids given. This will also correct with dialysis. * Lactic acidosis most likely related to cardiac arrest and persistent hypotension with high dose pressors. He is covered with empiric antibiotic therapy at present and has received Vancomycin and Ceftriaxone. * Septic shock etiology remains uncertain at present. He does have very high lactic acid level and has required high dose pressors. He is receiving appropriate antibiotics for broad spectrum coverage and has already received about 9 liters of IV fluid. I do not feel that further IV fluids will be helpful. We will stop the sodium bicarbonate drip in a few hours after starting CRRT. Thank you for involving me in the care of Mr. Calzada. CECILY
--- NOTE | 2020-05-01 11:57 | RO ---
DATE OF OPERATION: 04/30/2020 PREOPERATIVE DIAGNOSIS: Renal failure POSTOPERATIVE DIAGNOSIS: Renal failure PROCEDURE: Insertion of dialysis catheter; site is left femoral vein. SURGEON: Herrera Fuller MD Verbal consent was obtained from the patient's and the procedure was performed emergently. PROCEDURE: After the left femoral area was prepped and draped in the usual sterile manner, the left femoral vein was cannulated with a large bore needle. The artery was entered once, but no hematoma identified and bleeding was controlled. After the vein was cannulated in a modified Seldinger technique, a dialysis catheter was easily placed. Good venous return was obtained from both ports. Each port was then flushed and heparinized. The line was sutured in place and sterile dressing applied. No complications noted. The patient tolerated the procedure well. CECILY
--- NOTE | 2020-05-01 11:58 | RO ---
DATE OF OPERATION: 04/29/2020 PROCEDURE: Insertion of triple lumen central venous catheter. SITE: Right femoral vein. SURGEON: Herrera Fuller MD. PREOPERATIVE DIAGNOSIS: Hypotension. POSTOPERATIVE DIAGNOSIS: Hypotension. DESCRIPTION OF PROCEDURE: This procedure was performed emergency. After the right upper arm area was prepped and draped in the usual sterile manner, the right femoral vein was easily cannulated with a large bore needle. In a modified-Seldinger technique, a triple lumen central venous catheter was easily advanced. Good venous return was obtained from all three ports. Each port was then flushed. The line was then sutured in place and sterile dressing applied. No complications noted. [facility]
--- NOTE | 2020-05-01 11:59 | RO ---
DATE OF OPERATION: 04/29/2020 PROCEDURE: Insertion of intra-arterial catheter. SITE: Right femoral artery. SURGEON: Herrera Fuller M.D. PREOPERATIVE DIAGNOSIS: Respiratory failure and hypothermia protocol. POSTOPERATIVE DIAGNOSIS: Respiratory failure and hypothermia protocol. DESCRIPTION OF PROCEDURE: After the right femoral area was prepped and draped in the usual sterile manner, the right femoral artery was easily cannulated with a large bore needle. Using modified-Seldinger technique, a 15 cm 5-German catheter was easily placed. Good arterial flow was noted through the catheter. It was hooked to the monitor and good arterial waveform was noted. The catheter was flushed. It was then sutured in place and sterile dressing applied. No complications noted. CECILY
--- NOTE | 2020-05-02 07:39 | DS ---
DATE OF ADMISSION: 04/29/2020 DATE OF EXPIRATION: 04/30/2020 DISCHARGE DIAGNOSIS: Status post cardiac arrest. SECONDARY DIAGNOSES: * Severe metabolic acidosis. * Suspected sepsis. * Anoxic encephalopathy. * Renal failure. * Chronic back pain. HISTORY: Mr. Calzada presented to the hospital after a cardiac arrest essentially on the commode at home. He was resuscitated with return of circulation. He was endotracheally intubated in the ER. HOSPITAL COURSE: He was initially placed on hypothermia protocol but even his baseline temperature was quite cold. He was found to be profoundly acidotic from a metabolic standpoint. He was volume resuscitated. He required at least three vasopressors. He was placed on empiric antimicrobials. HOSPITAL COURSE: He was moved to the Intensive Care Unit. He continued to have significant requirements as far as vasopressors. Ventilation manipulations were made as well. He had very significant hepatic dysfunction and coagulopathy felt to be most likely on the basis of intra-abdominal process in the form of either gut or thrombosis of the liver. Given his presentation, he was not a surgical candidate. CRRT was employed after consultation with nephrology in hopes of improving his overall acidosis. Despite this he continued to decline. He had been made a DO NOT RESUSCITATE by his and this was very appropriate. When after several hours of renal replacement therapy, he had continued decline. The decision at that point was made by the to pursue comfort measures only based on his previous wishes. This was therefore undertaken. He was pronounced at 2028 hours on April 30, 2020. No autopsy. For pertinent laboratories, please refer to the hospital record. [facility]
--- NOTE | 2020-05-02 08:38 | HPE ---
DATE OF ADMISSION: 04/29/2020 START TIME: 1445 STOP TIME: 1614 ten minutes of which included procedures SUBJECTIVE: I was called to the ER to evaluate Niels Calzada. He is a 74-year-old gentleman recently admitted to [facility] for new onset atrial fibrillation, discharged on the of this month. I was placed on Amiodarone, Cardizem, Eliquis, and Protonix. He was scheduled for followup w Dr. Duffy. He is essentially according to his wheelchair bound due to spinal stenosis and pain and is very weak. He has had increasing back pain over the last several weeks causing him essentially to be wheelchair-bound. Today after being placed on the commode by his , he became unresponsive. EMS was summoned. He was in full arrest. ACLS protocol was applied. He had spontaneous return of circulation after several rounds of Epinephrine. He had another arrest in the ambulance. On arrival here, it was a difficult airway. He was able to be eventually converted to a #7.5 endotracheal tube by anesthesia. He required both Epinephrine and Levophed to maintain a blood pressure. CT scan of the head and chest as well as abdomen and pelvis did not show any significant pathology. I am now asked to admit him. A long discussion was had by Dr. Meraz with the patient's at the bedside who requested DO NOT RESUSCITATE (DNR) and no reintubation. She tells Dr. Meraz as well as myself that they have had multiple discussions in the past that should he ever be in a situation where it does not looking promising, he does not wish to be kept alive artificially. On my arrival in the ER, blood pressure 110 systolic on both Levophed and Epinephrine. Femoral triple lumen as well as femoral A-line were placed by myself occupying under ten minutes time. Hypothermia protocol had been instituted by the ER. Ventilator adjustments were made. He has required no sedation. He has significant what is either marked myoclonus or brief seizure activity. CT scan of the chest to my eye raised the question of whether or not there was pericardial fluid and a stat echo was obtained. Although it is suboptimal it appears that there is only minimal fluid with no collapse. The posterior wall could not be seen. The septum appeared to move. On the apical view there does appear to be reasonable left ventricular function but repeat windows for that are pending. Most recent laboratories show a white blood cell count at 36,000, hemoglobin 15.5, platelet count of 523,000, 40% segs, 11 % bands. Labs obtained in the ER were not placed in the chart as they were done point of service. Repeats are currently pending. First lactic acid 16.7. Troponin less than 0.02. Bilirubin 1.4, AST and ALT 1,067 and 775 respectively. First blood gas done on assist control mode rate of 16, tidal volume 500, PEEP of 5, FiO2 of 100% has a pH of 6.99, pCO2 43.1, and a PaO2 of 108.2. Coagulation studies show a d-dimer greater than 4,000, INR of 2.78. PHYSICAL EXAMINATION: He is unresponsive to stimuli. Pupils are mid range about 4 mm and unresponsive. 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 With any stimulation at all he has what appears to be significant myoclonus. There are bloody oral and OG tube secretions. Trachea is midline. Chest with symmetric expansion, quite diminished. He is morbidly obese. No focal adventitious breath sounds. Cardiac exam: Distant, generally regular. Peripheral pulses are diminished. There is trace edema. Abdomen obese. There are markedly diminished bowel sounds. No convincing organomegaly or masses although exam is difficult due to his body habitus. Extremities show no cyanosis or clubbing. Neurologically as outlined above. MOST PRESSING PROBLEMS REQUIRING MY IMMEDIATE PRESENCE AT THE BEDSIDE: 1. Status post cardiac arrest, now mechanical ventilatory requiring. 2. Respiratory failure secondary to the above. 3. Suspected significant anoxic encephalopathy. 4. History of atrial fibrillation. 5. Anticoagulation with Eliquis. 6. Known spinal stenosis. 7. Profound metabolic acidosis due to a combination of the above. ASSESSMENT AND PLAN: At this point in view of his presentation, we will actively cool him under hypothermia protocol. I discussed this at length with his . Although his white count may be on the basis of his cardiac arrest, we will cover him empirically with antimicrobials especially since he had a recent hospitalization. He will be cultured both urine and blood. I spoke at length with the regarding his status. I am quite concerned regarding his myoclonus/seizures and therefore he will be placed on Keppra. Versed will be used as needed for sedation. I will probably plan a CT scan again in 24 hours. She has requested that if he has no significant improvement or has significant decline, she would not wish further intervention and probably would favor withdrawal support, and we will keep that in mind as we go forward. Ulcer and DVT prophylaxis are in place. Laboratories done for protocol for hypothermia have been ordered. At this point his prognosis is overall guarded at best and there is a very high likelihood he will not survive this hospitalization. I left the bedside at 1614 hours. Eighty nine minutes of critical care time delivered at the bedside, less than then minutes of which included procedures. CECILY
--- NOTE | 2020-05-02 12:35 | ECHO ---
DATE OF PROCEDURE: 04/29/2020 Age: 74 Gender: Male Height: 69 inches Weight: 307 pounds Body surface area: 2.68 m2 PATIENT LOCATION: Inpatient intensive care unit (ICU), Room 3209. REFERRING PHYSICIAN: Herrera Fuller M.D. INDICATION: Post cardiac arrest. MEASUREMENTS: 2D Measurements: RV 2.4 cm LV 5.0 cm Septum 1.0 cm Posterior wall 1.0 cm Aortic Root 3.2 cm LA 3.7 cm LVEF 70% Doppler Measurements: AV Not measured LVOT Not measured MV-E 57, A 37, E/A ratio 1.5 Early mitral deceleration time 214 m/s E prime medial 8.2, A prime medial 5.1, E prime lateral 5.9 Average E/E prime ratio 8/PCWP 11.9 mmHg PV 1.0 m/s Pulmonary artery acceleration time 118 m/s RVSP 28 mmHg IVC 0.5 cm COMMENTS: Normal sinus rhythm with right bundle branch block. Technically difficult study in light of the patients body habitus, but some diagnostically useful information was still obtained. M-mode and two-dimensional echocardiography was performed with pulse, continuous wave, color flow, and tissue Doppler studies. Normal left ventricular size, wall thickness, and wall motion. Normal left atrial size and Doppler assessment of left ventricular (LV) diastolic function and estimated mean left atrial pressure. Normal right heart chamber sizes and motion with current estimated pulmonary artery pressure upper limits of normal. His inferior vena cava (IVC) was virtually collapsed in keeping with reduced central venous pressure. Normal aortic dimensions. Normal appearing and functioning aortic valve. Mild degenerative changes of the mitral valvular apparatus without inflow tract obstruction and no more than very mild insufficiency. Normal appearing tricuspid valve with very mild tricuspid insufficiency. Could not visualize any intracardiac mass or pericardial effusion. MTDD
== END 2020-04-30 21:59 | disposition expired | DRG 871 ==
LOC: EDBD 12:45 → M ED 12:45 → M ED INP 15:56 → M ICU 16:18
PROVIDERS: ADMIT Internal Medicine Pulmonary Disease; ATTEND Internal Medicine Pulmonary Disease
PROC: 5A1945Z Respiratory Ventilation, 24-96 Consecutive Hours (ICD-10-PCS; principal; 2020-04-29)
PROC: 02HV33Z Insertion of Infusion Device into Superior Vena Cava, Percutaneous Approach (ICD-10-PCS; 2020-04-30)
PROC: 0JH63XZ Insertion of Tunneled Vascular Access Device into Chest Subcutaneous Tissue and Fascia, Percutaneous Approach (ICD-10-PCS; 2020-04-30)
DX: A41.9 Sepsis, unspecified organism (principal); R65.21 Severe sepsis with septic shock; K55.069 Acute infarction of intestine, part and extent unspecified; I82.0 Budd-Chiari syndrome; K72.00 Acute and subacute hepatic failure without coma; E87.2 Acidosis; N17.9 Acute kidney failure, unspecified; Z68.42 Body mass index [BMI] 45.0-49.9, adult; G93.1 Anoxic brain damage, not elsewhere classified; E87.1 Hypo-osmolality and hyponatremia; D68.9 Coagulation defect, unspecified; I46.9 Cardiac arrest, cause unspecified; E66.01 Morbid (severe) obesity due to excess calories; I48.91 Unspecified atrial fibrillation; R57.0 Cardiogenic shock; Z66 Do not resuscitate; Z51.5 Encounter for palliative care; Z79.01 Long term (current) use of anticoagulants; M10.9 Gout, unspecified